=== PATIENT | female | born 1995 | race African-American/Black ===

== ENCOUNTER 2023-04-19 12:40 | Emergency (ER) | payer OTHER ==
[2023-04-19 12:53] VITALS: BP 111/75; PULSE 83; RESP 18; TEMP 97.3; BMI 22.4
== END 2023-04-19 13:28 | disposition home or self-care (01) ==
LOC: JERFT 12:40
DX: H57.12 Ocular pain, left eye (principal)
CPT/HCPCS: 99283-25

== ENCOUNTER 2023-08-20 08:22 | Emergency (ER) | payer OTHER ==
[2023-08-20 08:37] VITALS: BMI 23.4
[2023-08-20] MEDS: ACETAMINOPHEN 1000 MG/100 ML BAG IVPB ONE (09:44)
[2023-08-20 09:47] LABS: BASO % 0.7 % (0-2.0); EOS % 3.3 % (0-4.5); HEMATOCRIT 39.5 % (32.4-45.2); HEMOGLOBIN 13.1 GM/dL (10.7-15.3); LYMPH % 44.4 % (8-40); MCH 29.3 pg (25.7-33.7); MCHC 33.2 g/dl (32.0-36.0); MEAN CELL VOLUME 88.3 fl (80-96); MEAN PLT VOLUME 9.4 fl (7.5-11.1); MONO % 9.4 % (3.8-10.2); NEUT % 42.2 % (42.8-82.8); PLATELET COUNT 254 10^3/uL (134-434); RBC 4.47 M/mm3 (3.60-5.2); RDW 12.8 % (11.6-15.6); WHITE BLOOD COUNT 6.3 K/mm3 (4.0-10.0)
[2023-08-20 10:10] LABS: POTASSIUM 3.9 mmol/L (3.5-5.1)
[2023-08-20 10:11] LABS: EPI CELLS >36 /uL (0-25.1); HYALINE CASTS 2 /uL (0-3.1); PH,URINE 5.5 (5.0-8.0); URINE APPEARANCE CLEAR; URINE BILIRUBIN NEGATIVE (NEGATIVE); URINE COLOR YELLOW; URINE GLUCOSE (UA) NEGATIVE (NEGATIVE); URINE KETONE NEGATIVE (NEGATIVE); URINE LEUK ESTERASE 1+ (NEGATIVE); URINE NITRITE NEGATIVE (NEGATIVE); URINE PROTEIN NEGATIVE (NEGATIVE); URINE RBC 2 /uL (0-23.9); URINE UROBILINOGEN 0.2 mg/dL (0.2-1.0); URINE WBC 10 /uL (0-25.8)
[2023-08-20 10:13] LABS: ALBUMIN 3.5 g/dl (3.4-5.0); BLOOD UREA NITROGEN 9.2 mg/dL (7-18)
[2023-08-20 10:16] LABS: CREATININE 0.8 mg/dL (0.55-1.3)
[2023-08-20 10:19] LABS: BILIRUBIN,TOTAL 0.7 mg/dL (0.2-1)
[2023-08-20 11:15] LABS: URINE BACTERIA 95 /uL (0-1359)
[2023-08-20 13:05] VITALS: BP 109/74; PULSE 70; RESP 20; TEMP 98.1
== END 2023-08-20 13:05 | disposition home or self-care (01) ==
LOC: JER 08:22
PROC: 3E033NZ Introduction of Analgesics, Hypnotics, Sedatives into Peripheral Vein, Percutaneous Approach (ICD-10-PCS; principal; 2023-08-20)
DX: R10.31 Right lower quadrant pain (principal); N83.201 Unspecified ovarian cyst, right side; N89.8 Other specified noninflammatory disorders of vagina
CPT/HCPCS: 36415; 76830-TC; 80053; 81003; 83690; 84703; 85025; 87077; 87086; 87491; 87591; 87661; 99284-25; J0131

== ENCOUNTER 2024-11-08 16:15 | Emergency (ER) | payer OTHER ==
[2024-11-08 16:21] VITALS: BP 111/71; PULSE 78; RESP 18; TEMP 97.5; BMI 22.4
[2024-11-08] MEDS ORDERED: METOCLOPRAMIDE HCL INJECTION 10 MG/2 ML VIAL ONE (17:51)
[2024-11-08] MEDS ORDERED: ACETAMINOPHEN INJECTION 100 ML ONE (17:51)
[2024-11-08] MEDS ORDERED: KETOROLAC TROMETHAMINE 15 MG/ML VIAL ONE (17:51)
[2024-11-08] MEDS: ACETAMINOPHEN 1000 MG/100 ML BAG IVPB ONE (18:10)
[2024-11-08] MEDS: KETOROLAC TROMETHAMINE 15 MG/ML VIAL IVPUSH ONE (18:11)
[2024-11-08] MEDS: METOCLOPRAMIDE HCL INJECTION 10 MG/2 ML VIAL IVPUSH ONE (18:11)
[2024-11-08] MEDS: SODIUM CHLORIDE 0.9% 500 ML INFUS.BAG IV ONE (18:11)
[2024-11-08 20:00] LABS: HIV INTERPRETATION NEGATIVE (NEGATIVE)
[2024-11-08 20:01] LABS: HCV DIAGNOSTIC IN-HOUSE W/RFLX NON-REACTIVE (NONREACTIVE)
== END 2024-11-08 18:58 | disposition home or self-care (01) ==
LOC: JER 16:15
PROC: 3E033NZ Introduction of Analgesics, Hypnotics, Sedatives into Peripheral Vein, Percutaneous Approach (ICD-10-PCS; principal; 2024-11-08)
PROC: 3E0333Z Introduction of Anti-inflammatory into Peripheral Vein, Percutaneous Approach (ICD-10-PCS; 2024-11-08)
PROC: 3E033GC Introduction of Other Therapeutic Substance into Peripheral Vein, Percutaneous Approach (ICD-10-PCS; 2024-11-08)
DX: R51.9 Headache, unspecified (principal); R42 Dizziness and giddiness
CPT/HCPCS: 36415; 70450-TC; 84703; 86803; 87389; 99285-25